=== PATIENT | female | born 1990 | race Caucasian/White ===

== ENCOUNTER 2021-06-22 21:57 | Emergency (ER) | payer MEDICAID ==
[~2021-06-22] VITALS: Ht 157.5 cm; Wt 55.0 kg
[2021-06-22 22:00] VITALS: BP 98/55
[2021-06-22] MEDS ORDERED: BACITRACIN ZINC OINT UDPKT TOP ONE (22:15)
[2021-06-22] MEDS ORDERED: FLUORESCEIN SODIUM 1MG/STRIP LEFTEYE ONE (22:30)
[2021-06-22] MEDS ORDERED: TETRACAINE 0.5% OPHTH DROPS 4ML LEFTEYE ONE (22:30)
[2021-06-23] MEDS ORDERED: SULF15DR26 LEFTEYE (00:15)
[2021-06-23] MEDS ORDERED: HYDR-4001 MT (00:15)
[2021-06-23] MEDS ORDERED: NAPR-1176 MT (00:15)
== END 2021-06-23 01:20 | disposition home or self-care (01) ==
LOC: ER 21:57
DX: T15.02XA Foreign body in cornea, left eye, initial encounter (principal); T52.8X1A Toxic effect of other organic solvents, accidental (unintentional), initial encounter; X58.XXXA Exposure to other specified factors, initial encounter; Y93.89 Activity, other specified; Y92.89 Other specified places as the place of occurrence of the external cause
CPT/HCPCS: 99284